=== PATIENT | female | born 1980 | race Caucasian/White ===

== ENCOUNTER 2023-12-26 14:54 | Emergency (ER) | payer OTHER, SELFPAY ==
--- NOTE | ~2023-12-26 | CT_ITS ---
EXAMINATION: CT abdomen pelvis w con DATE: 12/26/2023 17:37 INDICATION: esophageal stricture TECHNIQUE: Computed tomography (CT) of the abdomen and pelvis was performed with 100 mL Omnipaque-350 intravenous contrast. Automated exposure control and iterative reconstruction technique were employe d. The dose-length product was 853.88 mGy-cm. COMPARISON: 08/14/2015. FINDINGS: Lower thorax: Unremarkable Liver: Stable 1 cm left lobe cyst or hemangioma. Biliary/Gallbladder: Gallbladder is normal. No bile duct dilation. Pancreas: No mass or duct dilation. Spleen: Normal. Adrenals:No mass. Kidneys: No suspicious mass, obstructing stone, or hydronephrosis. Simple right midpole cyst. GI tract: Mild distal esophageal and gastric wall edema. No small or large bowel dilation. Normal mati endix. Diverticulosis without diverticulitis. Mesentery/Peritoneum: No ascites, mass, or free air. Retroperitoneum: No mass. Pelvis: Normal uterus and urinary bladder. Right corpus luteal cyst. Left ovary not visualized. Soft Tissues: Soft tissues and body wall unremarkable. Bones: No acute osseous finding. IMPRESSION: Mild esophagitis/gastritis. Otherwise no acute abdominopelvic process detected. Reviewed, dictated and finalized at location [facility]. RKETING REP
[2023-12-26 15:06] VITALS: BP 139/87; PULSE 100; RESP 16; TEMP 36.6; O2SAT 98
--- NOTE | 2023-12-26 15:37 | ED.GENADULT ---
HPI - General Adult General Chief complaint: Abdominal Pain <Enoc Baires PA-C - Last Filed: 12/26/23 15:43> Stated complaint: N/V ABD PAIN <Enoc Baires PA-C - Last Filed: 12/26/23 15:43> Time Seen by Provider: 12/26/23 15:29 <Enoc Baires PA-C - Last Filed: 12/26/23 15:43> Focused HPI: This is a 43-year-old female who presents to the ED with chief complaint of possible food bolus in the lower esophagus. Reports she has known esophageal stricture and used to have to get dilations for this. States that last night and today she has had more trouble swallowing food and feels like it gets stuck to near the stomach. Denies any new difficulty with liquids. Endorses 7 episodes of emesis, happens whenever she tries to eat. Denies fevers, chills, diarrhea. GENERAL: Well-appearing, well-nourished, and in no acute distress. HEAD: Normocephalic, atraumatic. CHEST: Clear to auscultation. No respiratory distress. HEART: Regular rate and rhythm. ABDOMEN: Abdomen soft. No tenderness. NEURO: Alert and oriented x3. Patient screened in triage and initial orders placed. Additional care and disposition to be based upon diagnostic testing and treatment. <Enoc Baires PA-C - Last Filed: 12/26/23 15:43> Source: patient <Enoc Baires PA-C - Last Filed: 12/26/23 15:43> Mode of arrival: ambulatory <Enoc Baires PA-C - Last Filed: 12/26/23 15:43> Limitations: no limitations <Enoc Baires PA-C - Last Filed: 12/26/23 15:43> History of Present Illness HPI narrative: 43 Year old female with a reported history of GERD and esophageal strictures reports for evaluation for epigastric abdominal pain regurgitation since last night.? Patient states she had to [employer] hamburg[employer] and [employer] fries, few hours later began developing discomfort in the distal esophagus and stomach.? States she is concerned that there is something stuck in her esophagus, however that sensation has since resolved.? States today every time she has tried to eat, she vomits.? Patient states that she has had to have her esophagus dilated 3 times in the past at [place], she has not had a dilated in approximately 2.5 have years.? She denies hematemesis, coffee-ground emesis, melena or hematochezia, fever, dysuria or hematuria, urinary frequency or urgency. Last BM was a couple days ago and normal.? States she has been taking [id number] antacids without improvement. <Shasta Cummings PA-C - Last Filed: 12/26/23 19:22> Related Data Allergies/adverse reactions: Allergies Allergy/AdvReac Type Severity Reaction Status Date / Time No Known Allergies Allergy Unknown Unverified 01/01/16 08:37 <LIAM Gabriel Last Filed: 12/26/23 15:43> Review of Systems Review of Systems: CONSTITUTIONAL: Denies fever, chills, or sweats. EYES: Denies visual changes, redness, or discharge. ENT: Denies rhinorrhea, congestion, sore throat, or otalgia. CARDIOVASCULAR: Denies chest pain, palpitations, or edema. RESPIRATORY: Denies cough or dyspnea. GASTROINTESTINAL: See HPI GENITOURINARY: Denies dysuria or hematuria. SKIN: Denies rash or itching. MUSCULOSKELETAL: Denies back pain, joint pain, or myalgia. NEUROLOGIC: Denies headache, numbness, or weakness. PSYCHIATRIC: Denies anxiety or depression. <Shasta Cummings PA-C - Last Filed: 12/26/23 19:22> Exam Narrative: GENERAL: Well-appearing, well-nourished, and in no acute distress.? Patient is well-appearing, resting comfortably in exam bed.? She is pleasant and conversational, nontoxic appearing. HEAD: Normocephalic, atraumatic. EYES: PERRLA and EOMI. ENT: Nares clear, no rhinorrhea or epistaxis. Mucous membranes moist. NECK: Supple. CHEST: Clear to auscultation. No respiratory distress. HEART: Regular rate and rhythm. No murmur heard. Normal peripheral pulses. ABDOMEN: Soft, nontender, nondistended, normal active bowel sounds. no guarding, rebound or rigidity.? No CVA tendernes
[2023-12-26 15:56] LABS: Basophils Percent Auto 0.3 % (0.2-1.2); Eosinophils Absolute Auto 0.3 K/mm3 (0-0.3); Eosinophils Percent Auto 2.6 % (0-4.4); Hematocrit 41.4 % (37.0-47.0); Hemoglobin 13.6 g/dL (12.0-15.0); Immature Granulocyte Absolute 0.02 K/mm3 (0.00-0.031); Immature Granulocyte Percent A 0.2 % (0-0.5); Lymphocytes Absolute Auto 2.91 K/mm3 (0.9-3.2); Lymphocytes Percent Auto 30.4 % (18.3-44.2); Mean Corpuscular HGB Conc 32.9 g/dl (32-36); Mean Corpuscular Hemoglobin 30.8 pg (26-34); Mean Corpuscular Volume 93.9 fl (80-100); Mean Platelet Volume 9.7 fl (7.4-10.4); Monocytes Absolute Auto 0.6 K/mm3 (0.1-0.6); Neutrophils Absolute Auto 5.8 K/mm3 (1.3-6.7); Neutrophils Percent Auto 60.5 % (45.5-73.1); Platelet Count Result 233 k/mm3 (150-375); Red Blood Count 4.41 M/mm3 (4.2-5.4); Red Cell Distribution Width 12.4 % (11.5-14.5); White Blood Count 9.6 K/mm3 (4.5-10.0)
[2023-12-26 16:07] LABS: Alanine Aminotransferase 20 U/L (6-35); Albumin Level 4.4 g/dL (3.5-5.1); Alkaline Phosphatase 52 U/L (38-126); Anion Gap 6 mmol/L (8-16); Aspartate Amino Transferase 23 U/L (14-36); Bilirubin,Total 0.4 mg/dL (0.2-1.3); Blood Urea Nitrogen 13 mg/dL (7-17); Calcium 9.3 mg/dL (8.4-10.2); Carbon Dioxide 26 mmol/L (22-30); Chloride 107 mmol/L (98-107); Estimated CRCL calculation 92 ml/min; Estimated Glomerular Filt Rate > 60; Glucose 104 mg/dL (65-110); Lipase 77 U/L (23-300); Potassium 3.9 mmol/L (3.4-5.0); Sodium 139 mmol/L (137-145)
--- NOTE | 2023-12-26 17:10 | ED.ABDPAIN ---
HPI - Abdominal Pain General Chief Complaint: Abdominal Pain Stated Complaint: N/V ABD PAIN Time Seen by Provider: 12/26/23 15:29 Source: patient Mode of arrival: ambulatory Limitations: no limitations History of Present Illness HPI narrative: 43 Year old female with a reported history of GERD and esophageal strictures reports for evaluation for epigastric abdominal pain regurgitation since last night. Patient states she had to [employer] and [place] fries, few hours later began developing discomfort in the distal esophagus and stomach. States she is concerned that there is something stuck in her esophagus, however that sensation has since resolved. States today every time she has tried to eat, she vomits. Patient states that she has had to have her esophagus dilated 3 times in the past at [place], she has not had a dilated in approximately 2.5 have years. She denies hematemesis, coffee-ground emesis, melena or hematochezia, fever, dysuria or hematuria, urinary frequency or urgency. Last BM was a couple days ago and normal. States she has been taking [id number] antacids without improvement. Related Data Allergies Allergy/AdvReac Type Severity Reaction Status Date / Time No Known Allergies Allergy Unknown Unverified 01/01/16 08:37 Review of Systems Review of Systems: CONSTITUTIONAL: Denies fever, chills, or sweats. EYES: Denies visual changes, redness, or discharge. ENT: Denies rhinorrhea, congestion, sore throat, or otalgia. CARDIOVASCULAR: Denies chest pain, palpitations, or edema. RESPIRATORY: Denies cough or dyspnea. GASTROINTESTINAL: See HPI GENITOURINARY: Denies dysuria or hematuria. SKIN: Denies rash or itching. MUSCULOSKELETAL: Denies back pain, joint pain, or myalgia. NEUROLOGIC: Denies headache, numbness, or weakness. PSYCHIATRIC: Denies anxiety or depression. Exam Narrative: GENERAL: Well-appearing, well-nourished, and in no acute distress. Patient is well-appearing, resting comfortably in exam bed. She is pleasant and conversational, nontoxic appearing. HEAD: Normocephalic, atraumatic. EYES: PERRLA and EOMI. ENT: Nares clear, no rhinorrhea or epistaxis. Mucous membranes moist. NECK: Supple. CHEST: Clear to auscultation. No respiratory distress. HEART: Regular rate and rhythm. No murmur heard. Normal peripheral pulses. ABDOMEN: Soft, nontender, nondistended, normal active bowel sounds. no guarding, rebound or rigidity. No CVA tenderness. EXTREMITIES: Normal range of motion. No edema. SKIN: Warm, dry, no rash. NEURO: No focal deficits. Alert and oriented x3 Course Vital Signs Vital signs: Vital Signs Temperature 97.9 F 12/26/23 15:06 Pulse Rate 100 12/26/23 15:06 Respiratory Rate 16 12/26/23 15:06 Blood Pressure 139/87 12/26/23 15:06 Pulse Oximetry 98 12/26/23 15:06 Temperature 97.9 F 12/26/23 15:06 Pulse Rate 100 12/26/23 15:06 Respiratory Rate 16 12/26/23 15:06 Blood Pressure 139/87 12/26/23 15:06 Pulse Oximetry 98 12/26/23 15:06 MDM - Abdominal Pain MDM Narrative Medical decision making narrative: 43-year-old female with reported history of GERD and esophageal strictures reports for evaluation for gastric reflux and sensation of a food bolus, however she states this sensation has since resolved. Vitals are stable. Patient is nontoxic and well appearing on exam. CBC and chemistries are unremarkable. Lab Data 12/26/23 15:48 12/26/23 15:48 Labs: Lab Results 12/26/23 Range/Units 15:48 WBC 9.6 (4.5-10.0) K/mm3 RBC 4.41 (4.2-5.4) M/mm3 Hgb 13.6 (12.0-15.0) g/dL Hct 41.4 (37.0-47.0) % MCV 93.9 (80-100) fl MCH 30.8 (26-34) pg MCHC 32.9 (32-36) g/dl RDW 12.4 (11.5-14.5) % Plt Count 233 (150-375) k/mm3 MPV 9.7 (7.4-10.4) fl Immature Gran % (Auto) 0.2 (0-0.5) % Neut % (Auto) 60.5 (45.5-73.1) % Lymph % (Auto) 30.4 (18.3-44.2) % [place] % (Auto) 6.0 (2.6-8.5)
[2023-12-26] MEDS: SODIUM CHLORIDE 0.9% IV 1,000 ML 999 ML IV CONT (17:45)
[2023-12-26] MEDS: BELLADONNA ALK/PHENOB ELIX 10 ML, MAG HYDROX/ALUMINUM HYD/SIMETH 30 ML, LIDOCAINE HCL 2... PO (17:46)
[2023-12-26] MEDS: PANTOPRAZOLE 40 MG TABLET PO (17:52)
[2023-12-26] MEDS: ACETAMINOPHEN 500 MG TABLET 1000 MG PO (17:52)
[2023-12-26 18:50] VITALS: BP 120/52; PULSE 80; RESP 16; TEMP 36.7; O2SAT 100
[2023-12-26 19:04] LABS: Appearance Urine Clear (Clear); Bacteria Urine None Seen /hpf; Bilirubin Urine Negative (Negative); Color Urine Yellow (Yellow); Glucose Urine UA Negative (Negative); Ketones Urine Negative (Negative); Leukocyte Esterase Ur Negative LEU/UL (Negative); Nitrate Urine Negative (Negative); Non Pathogenic Casts 0-2; Protein Urine Negative (Negative); Squamous Epithelial Cell Urine None seen /hpf (Few); Urobilinogen Urine 0.2 mg/dL (<2.0); WBC Urine 0-5 /hpf; pH Urine 6.5 (5.0-9.0)
[2023-12-26 19:10] LABS: Add Urine Microscopic? YES; Specific Grav Ur 1.056 (1.001-1.035)
--- NOTE | 2023-12-26 19:16 | PC.NURSE ---
Nurse report given to Marj COLE.
[2023-12-26 19:46] VITALS: BP 112/69; PULSE 85; RESP 15; O2SAT 100
== END 2023-12-26 19:47 | disposition home or self-care (01) ==
PROVIDERS: Physician Assistant; Emergency Provider Physician Assistant; PCP Nurse Practitioner Family
DX: K29.70 Gastritis, unspecified, without bleeding (principal); K20.90 Esophagitis, unspecified without bleeding; K21.9 Gastro-esophageal reflux disease without esophagitis
CPT/HCPCS: 36415; 74177; 80053; 81001; 81025; 83690; 85025; 96360; 99284; A9270; J7030; Q9967

== ENCOUNTER 2024-01-12 07:55 | Day surgery (SDC) | payer OTHER, SELFPAY ==
[2024-01-02 14:47] VITALS: BMI 33.3
[2024-01-03 08:48] VITALS: BMI 32.5
--- NOTE | 2024-01-11 11:37 | P.PNAN_ITS ---
Anes - Initial Pre Proc Eval Procedure: Operation Date: 01/12/24 10:00 Proposed Procedures p Esophagogastroduodenoscopy - Atul Christine MD Date/Time: 01/11/24 11:37 Surgeon: Atul Christine MD Pre Op Diagnosis: GERD w/o esophagitis,Dysphagia Patient Data Age: 43 Gender: F Height: 1.73 m Weight: 97 kg Allergies Allergy/AdvReac Type Severity Reaction Status Date / Time No Known Allergies Allergy Unknown Verified 01/12/24 08:23 Home Medications Medication Instructions Recorded Confirmed Type atorvastatin 10 mg tablet 10 mg PO HS 12/29/23 01/12/24 History lamotrigine 200 mg tablet 200 mg PO HS 12/29/23 01/12/24 History (Lamictal) pantoprazole 40 mg tablet,delayed 40 mg PO HS #30 tabs 12/29/23 01/12/24 Rx release quetiapine 300 mg tablet (Seroquel) 600 mg PO HS 12/29/23 01/12/24 History Patient hx anesthesia problems: none Family hx anesthesia problems: none Results Review: All pre-operative results and documents have been reviewed as part of the pre- operative evaluation. [facility] Past Medical History Medical History (Updated 12/29/23 @ 11:53 by Mohini Watson APRN) Abnormal CT scan, stomach Bipolar 1 disorder Colon cancer screening Dysphagia Food impaction of esophagus GERD (gastroesophageal reflux disease) Hyperlipemia Obesity Tobacco abuse Surgical History Surgical History (Updated 12/29/23 @ 11:47 by Mohini Watson APRN) History of cranial surgery Hx of section x 3 Hx of removal of ovary Social History Social History (Updated 12/29/23 @ 11:30 by Gilda Lewis MA) Smoking packs per day: 1 Smoking cigarettes per day: 20.0 Years smoked: 2 Smoking pack-years: 2.00 Smoking status: Current every day smoker Tobacco type: cigarettes Alcohol intake: current Drinks per week: 6 Substance use: never Substance use type: does not use Living arrangements: with family Spiritual care concerns: No Anes - Eval Final PreProcedure Day of Procedure 01/11/24 11:37 Patient weight: obese Heart: regular rate and rhythm Lungs: clear to auscultation Airway: Mallampati scale class II Neurological: alert and oriented Last oral intake: >/= 8 hours ASA classification: III Emergent: no Anesthetic plan: proceed Anesthesia type and monitoring: general GIVS and standard monitoring Results Review: All pre-operative results and documents have been reviewed as part of the pre- operative evaluation. Informed Consent: The patient's anesthetic plan and its attendant risks and benefits were discussed with the patient/family/POA. Questions were solicited and answers provided to the satisfaction of the patient/family/POA.
[2024-01-12 08:10] VITALS: BP 124/78; PULSE 80; RESP 20; TEMP 36.7; O2SAT 100
[2024-01-12] MEDS: LACTATED RINGERS 1,000 ML 150 ML IV CONT (08:48)
--- NOTE | 2024-01-12 08:59 | WPDHPUPDATE1 ---
History and Physical Update Update Date/Time: 01/12/24 08:59 History and Physical has been reviewed, including an updated exam of the patient. There are NO changes in the patient's condition. Risks, benefits, and alternatives have been discussed and questions answered. Patient agrees to proceed with procedure.
[2024-01-12 10:12] VITALS: BP 115/69; PULSE 78; RESP 18; O2SAT 100
--- NOTE | 2024-01-12 10:13 | WPDANESPN ---
Anes - Prog Note Post-Op Date/Time: 01/12/24 10:13 Cardiovascular status: normal Respiratory status: normal Airway patency: baseline Mental status: baseline Post-Op hydration status: normal Vital Signs: Last Vital Signs Temp 36.7 C 01/12/24 08:10 Pulse 80 01/12/24 08:10 Resp 20 01/12/24 08:10 BP 124/78 01/12/24 08:10 Pulse Ox 100 01/12/24 08:10 O2 Del Method Room Air 01/12/24 08:10 Pain Score (VAS): 0 Post-procedural complaints: none Patient Feedback: Patient satisfied with anesthetic care. Other Findings: Patient vital signs back to baseline. Patient denies nausea and vomiting. Patient's pain under control. Patient OK for discharge.
[2024-01-12 10:22] VITALS: BP 108/67; PULSE 70; RESP 18; O2SAT 100
[2024-01-12 10:32] VITALS: BP 114/74; PULSE 66; RESP 18; O2SAT 100
== END 2024-01-12 10:44 | disposition home or self-care (01) ==
PROVIDERS: PCP Nurse Practitioner Family; Visit Provider Internal Medicine Gastroenterology
PROC: 0DJ08ZZ Inspection of Upper Intestinal Tract, Via Natural or Artificial Opening Endoscopic (ICD-10-PCS; CPT 43235; principal; 2024-01-12 10:00)
DX: Q39.4 Esophageal web (principal); R13.19 Other dysphagia; R10.13 Epigastric pain
CPT/HCPCS: 43450

== ENCOUNTER 2024-02-25 09:48 | Emergency (ER) | payer OTHER, SELFPAY ==
[2024-02-25 09:54] VITALS: BP 135/80; PULSE 114; RESP 15; TEMP 36.4; O2SAT 100
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
[2024-02-25] MEDS: TETANUS,DIPHTHERIA,AC PERTUSSIS ADULT (0.5 ML) BOOSTRIX IM (10:16)
[2024-02-25 10:59] VITALS: BP 108/50; PULSE 86; RESP 15; TEMP 36.8; O2SAT 100
== END 2024-02-25 11:01 | disposition home or self-care (01) ==
PROVIDERS: Emergency Provider Emergency Medicine; PCP Nurse Practitioner Family
DX: S61.512A Laceration without foreign body of left wrist, initial encounter (principal); R45.88 Nonsuicidal self-harm; Z23 Encounter for immunization; E78.5 Hyperlipidemia, unspecified; E66.9 Obesity, unspecified; Z68.32 Body mass index [BMI] 32.0-32.9, adult; K21.9 Gastro-esophageal reflux disease without esophagitis; F17.210 Nicotine dependence, cigarettes, uncomplicated; F31.9 Bipolar disorder, unspecified; W26.0XXA Contact with knife, initial encounter
CPT/HCPCS: 12002; 90471; 90715; 99282

== ENCOUNTER 2024-07-11 15:22 | Outpatient (CLI) | payer OTHER, SELFPAY ==
--- NOTE | ~2024-07-11 | XR_ITS ---
EXAMINATION: XR foot RT min 3V DATE: 07/11/2024 15:39 INDICATION: Right foot pain. TECHNIQUE: 5 views of right foot were obtained. COMPARISON: None. FINDINGS: There is mild hallux valgus. No fracture. There is mild osteoarthritis of first metatarsoph alangeal joint and second distal interphalangeal joint. There is an enthesophyte of posterior aspect of calcaneal tuberosity. IMPRESSION: 1. Mild polyarticular osteoarthritis. 2. Mild hallux valgus. Reviewed, dictated and finalized at location A.
== END 2024-07-11 15:23 | disposition home or self-care (01) ==
LOC: ANHIMG 15:27
PROVIDERS: PCP Nurse Practitioner Family; Visit Provider Nurse Practitioner Family
DX: M19.011 Primary osteoarthritis, right shoulder (principal); M20.11 Hallux valgus (acquired), right foot
CPT/HCPCS: 73630